=== PATIENT | female | born 1955 | race Caucasian/White ===

== ENCOUNTER 2018-02-24 20:20 | Inpatient (IN) | payer OTHER ==
[~2018-02-24] VITALS: Ht 165.1 cm; Wt 83.9 kg
--- NOTE | 2018-02-24 20:36 | NUR ---
BB SON C/O X3 DAYS RIGHT BACK PAIN RADIATING TO RIGHT SHOULDER 07/21, NAD NOTED, VSS, RESP EVEN AND UNLABORED, PT WAS PUT ON HOSPITAL GOWN AND MONITOR, AT .
[2018-02-24 20:57] LABS: BASOPHILS % (AUTO) 0.5 % (0.0-2.0); EOSINOPHILS % (AUTO) 1.1 % (0.0-6.0); HEMATOCRIT 40 % (33-45); HEMOGLOBIN 13.9 g/dL (11.5-14.8); LYMPHOCYTES # (AUTO) 2.3 /CMM (0.8-4.8); LYMPHOCYTES % (AUTO) 27.4 % (20.0-44.0); MEAN CORPUSCULAR HGB CONC 35 g/dl (31.0-36.0); MEAN CORPUSCULAR VOLUME 83 fL (82-100); MONOCYTES # (AUTO) 0.4 /CMM (0.1-1.30); NEUTROPHILS # (AUTO) 5.5 /CMM (1.8-8.9); PLATELET COUNT (AUTO) 296 /CMM (150-450); RDW COEFFICIENT OF VARIATION 12.5 (11.5-15.0); RED BLOOD CELL COUNT(AUTO) 4.84 MIL/uL (4.0-5.2); WHITE BLOOD COUNT (AUTO) 8.3 K/uL (4.3-11.0)
[2018-02-24 21:14] LABS: CALCIUM, SERUM 9.2 mg/dL (8.5-10.1); CARBON DIOXIDE 28 mmol/L (21-32); CHLORIDE 102 mmol/L (98-107); CREATININE 1.1 mg/dL (0.6-1.3); GLUCOSE 160 mg/dL (74-106); POTASSIUM 3.5 mmol/L (3.5-5.1); SODIUM SERUM 139 mmol/L (136-145); UREA NITROGEN, BLOOD 22 mg/dL (7-18)
[2018-02-24 21:15] LABS: INR 0.92 (0.85-1.15)
[2018-02-24 21:23] LABS: TROPONIN I < 0.017 ng/mL (0.00-0.056)
--- NOTE | 2018-02-24 21:24 | NUR ---
CALLED NURSING SUP. FOR TELE BED
--- NOTE | 2018-02-24 21:39 | NUR ---
CALLED DR. TIRADO, LEFT MESSAGE ON VOICEMAIL
[2018-02-24] MEDS ORDERED: CLOP75TA15 PO (21:54)
[2018-02-24] MEDS ORDERED: LOSA50TA21 PO (21:54)
[2018-02-24] MEDS ORDERED: CHLO25TA2 PO (21:54)
[2018-02-24] MEDS ORDERED: SIMV40TA5 PO (21:54)
[2018-02-24] MEDS ORDERED: CLON0.3T PO (21:54)
[2018-02-24] MEDS ORDERED: ISOS30TA6 PO (21:54)
[2018-02-24] MEDS ORDERED: ASPI-1152 PO (21:54)
[2018-02-24] MEDS ORDERED: MECL12.582 PO (21:54)
[2018-02-24] MEDS ORDERED: METO-358 PO (21:54)
[2018-02-24] MEDS ORDERED: MINO2.5T PO (21:54)
[2018-02-24] MEDS ORDERED: AMLO10TA6 PO (21:54)
--- NOTE | 2018-02-24 22:49 | NUR ---
FEBRUARY CT SCAN TECHNICIAN IS WORKING ON [place]. CALL BACK [phone]
--- NOTE | 2018-02-24 23:15 | NUR ---
report given to APURVA Martinez.
--- NOTE | 2018-02-24 23:32 | NUR ---
CALLED [employer] HYDROE[employer]RIC [employer]ANT MAINTAINER AT [phone]
[2018-02-25] MEDS ORDERED: ATOR40TA PO (00:02)
--- NOTE | 2018-02-25 00:26 | NUR ---
CORD TIRE BUILDER ADMIN NOTE PT WAS TRANSFERRED FROM ER VIA [facility], WAS ABLE TO AMBULATE FROM THE GURNEY TO THE BED WITH STEADY GAIT. PT IS A/O X3 ABLE TO MAKE NEEDS KNOWN, SON AT BEDSIDE. NO SIGNS OF SOB OR DISTRESS, BREATHING EVENLY AND UNLABORED ON RA. IV ACCESS IS INTACT AND PATENT. PT REFUSED BODY CHECK, WANTED TO KEEP HER CLOTHING ON AT THIS TIME. PT COMPLAINS UP RIGHT UPPER MEDIAL BACK PAIN, MINOR INFLAMMATION WAS NOTED ON PALPATION, PAIN RADIATES TO THE FRONT OF RIGHT CHEST. PT STATES THIS PAIN HAS BEEN GOING ON FOR 5 DAYS NOW AND SON IS STARTING TO NOTICE THE SWELLING. ORDERS RECEIVED BY DR. TIRADO, TO BE CARRIED OUT. BED IS IN LOW AND LOCKED POSITION, CALL LIGHT WITHIN REACH. WILL CONTINUE TO MONITOR PT
[2018-02-25 00:35] VITALS: BP 175/90
--- NOTE | 2018-02-25 00:37 | NUR ---
TRANSFERED PT TO [facility] WITH RADIO INTERFERENCE EXPERT ON TELE IN NO ACUTE DISTRESS. PT TOLERATED TRANSFER WELL.
--- NOTE | 2018-02-25 00:55 | NUR ---
PSYCHIATRIC NURSE PRACTITIONER NOTE DR TIRADO PAGED IN REGARDS TO PTS BP OF 175/90, PER DR TIRADO RESUME ALL HOME MEDS AND GIVE THE HOME EVENING MEDS THAT WERE MISSED- METOPROLOL, ASA AND MINOXIDIL. CLARIFICATION ON THE ORDER, PT IS NPO EXCEPT MEDS. WI LL CONTINUE TO MONITOR PT
[2018-02-25] MEDS ORDERED: ZOLPIDEM TARTRATE 5 MG TABLET PO PRN (01:00)
[2018-02-25] MEDS ORDERED: ACETAMINOPHEN 650 MG/20.3 ML UDC NG PRN (01:00)
[2018-02-25] MEDS ORDERED: HYDROCODONE/APAP 5/325MG 1 EACH TABLET PO PRN (01:00)
[2018-02-25] MEDS: ASPIRIN 81 MG TAB.CHEW PO SCH ×2 (01:28→08:41)
[2018-02-25] MEDS: MINOXIDIL (2.5MG) 2.5 MG TABLET PO SCH ×2 (01:30→08:41)
[2018-02-25] MEDS ORDERED: CLONIDINE HCL 0.1 MG TABLET PO PRN (01:30)
[2018-02-25] MEDS ORDERED: METOPROLOL SUCCINATE 50 MG TAB.SR.24H PO SCH (01:30)
[2018-02-25 04:00] VITALS: BP 137/64
--- NOTE | 2018-02-25 06:24 | NUR ---
ENGINE WATCHMAN CLOSING NOTE PT IS IN BED SLEEPING, EASILY AROUSED. NO SIGNS OF SOB OR DISTRESS, BREATHING EVENLY AND UNLABORED ON RA. PT WAS ABLE TO REST WELL AFTER THE NORCO, PAIN WAS RELIEVED. IV ACCESS IS INTACT AND PATENT. PT NPO FOR CARDIAC CONSULT. ON TELE MONITOR SB 52. BED IS IN LOW AND LOCKED POSITION, CALL LIGHT WITHIN REACH. WILL ENDORSE TO DAYSHIFT.
[2018-02-25 07:05] LABS: BASOPHILS % (AUTO) 0.5 % (0.0-2.0); EOSINOPHILS % (AUTO) 1.6 % (0.0-6.0); HEMATOCRIT 37 % (33-45); HEMOGLOBIN 12.5 g/dL (11.5-14.8); LYMPHOCYTES # (AUTO) 3.1 /CMM (0.8-4.8); LYMPHOCYTES % (AUTO) 38.4 % (20.0-44.0); MEAN CORPUSCULAR HGB CONC 34 g/dl (31.0-36.0); MEAN CORPUSCULAR VOLUME 84 fL (82-100); MONOCYTES # (AUTO) 0.6 /CMM (0.1-1.30); MONOCYTES % (AUTO) 7.1 % (2.0-12.0); NEUTROPHILS # (AUTO) 4.2 /CMM (1.8-8.9); NEUTROPHILS % (AUTO) 52.4 % (43.0-81.0); PLATELET COUNT (AUTO) 266 /CMM (150-450); RED BLOOD CELL COUNT(AUTO) 4.38 MIL/uL (4.0-5.2); WHITE BLOOD COUNT (AUTO) 8.1 K/uL (4.3-11.0)
[2018-02-25 07:06] LABS: CALCIUM, SERUM 8.8 mg/dL (8.5-10.1); POTASSIUM 3.9 mmol/L (3.5-5.1)
--- NOTE | 2018-02-25 07:30 | NUR ---
AGRICULTURAL ECONOMICS TEACHER AM NOTES PT IN BED, AAO X 3-4, SON AT BEDSIDE, ABLE TO MAKE NEEDS KNOWN, NO SIGNS OF SOB OR DISTRESS, BREATHING EVENLY AND UNLABORED ON RA. SB HR 55 ON TELE MONITOR. DENIES PAIN OR DISCOMFORT AT THIS TIME. LEFT AC IV ACCESS, FLUSHES WELL, SITE CLEAR. PT STILL REFUSED BODY CHECK, WANTED TO KEEP HER CLOTHING ON AT THIS TIME. NPO EXCEPT MEDS. BRP. BED IS IN LOW AND LOCKED POSITION, CALL LIGHT WITHIN REACH. WILL CONTINUE TO MONITOR PT
[2018-02-25 08:00] VITALS: BP 131/72
[2018-02-25] MEDS ORDERED: CLOPIDOGREL BISULFATE 75 MG TABLET PO SCH (09:00)
[2018-02-25] MEDS ORDERED: ISOSORBIDE MONONITRATE (30MG) 30 MG TAB.SR.24H PO SCH (09:00)
[2018-02-25] MEDS ORDERED: AMLODIPINE BESYLATE 10 MG TABLET PO SCH (09:00)
[2018-02-25] MEDS ORDERED: LOSARTAN POTASSIUM 25 MG TABLET PO SCH ×2 (09:00)
--- NOTE | 2018-02-25 09:30 | NUR ---
READING PROFESSOR NOTES DUE MEDS GIVEN. SEEN BY DR. TIRADO. TO BE SEEN BY DR. GUERRERO PRIOR TO DISCHARGE.
[2018-02-25 12:00] VITALS: BP 133/67
--- NOTE | 2018-02-25 13:38 | NUR ---
STANDPIPE TENDER NOTES PATIENT DISCHARGED TO HOME PER MD IN STABLE CONDITION. PROVIDED DC INSTRUCTIONS, MED RECON LIST AND HEALTH TEACHINGS IV ACCESS TO LEFT AC REMOVED, CATH TIP COMPLETE, PRESSURE AND DRESSING APPLIED. NO BLEEDING. PT TO FOLLOW UP WITH PCP AND DIRECTOR CLINICAL INFORMATION SERVICES IN 1-2 WEEKS AND WILL MAKE OWN APPOINTMENT. ALL BELONGINGS CHECKED AND RETURNED. ALL PAPERWORKS SIGNED. WILL GO HOME VIA PRIVATE CAR BY SON. MD NOTIFIED ABOUT PAIN MEDICATIONS. PATIENT WILL JUST TAKE MOTRIN OR TYLENOL AT HOME.
[2018-02-25] MEDS ORDERED: ATORVASTATIN 40 MG TABLET PO SCH (22:00)
== END 2018-02-25 13:41 | disposition home or self-care (01) | DRG 198 ==
LOC: ER 20:27 → TELE1 02-25 00:33 → MEDSG1 02-25 13:30
PROVIDERS: ADMIT Internal Medicine; ATTEND Internal Medicine
DX: R07.89 Other chest pain (principal); I25.2 Old myocardial infarction; I10 Essential (primary) hypertension; I25.10 Atherosclerotic heart disease of native coronary artery without angina pectoris; Z95.5 Presence of coronary angioplasty implant and graft; Z79.899 Other long term (current) drug therapy; Z79.82 Long term (current) use of aspirin; E78.5 Hyperlipidemia, unspecified
CPT/HCPCS: 36415; 71045-TC; 80048-TC; 84484-TC; 85025-TC; 85730-TC; 87081-TC; 93307-TC; A4606; Z7610